=== PATIENT | female | born 1990 | race Caucasian/White ===

== ENCOUNTER 2019-02-12 08:31 | Emergency (ER) | payer OTHER ==
[~2019-02-12] VITALS: Ht 162.6 cm; Wt 70.8 kg
[2019-02-12] MEDS ORDERED: XANAX0.25 MG ORAL (08:41)
--- NOTE | 2019-02-12 08:58 | Emergency Room Report ---
History of Present Illness General Chief Complaint: General Complaint Source: Patient Present Illness HPI 28-year-old female past medical history of panic attacks presents with intermittent chest pressure, palpitations, patient feels like there is someone poking her heart, she also endorses some nausea, she stated the symptoms started 1 day ago, when she was on a return flight from [place], she states that she took a Xanax which made her feel better, she states that she also felt better when a airline pilot flight instructor calmed her down, she states she has been under a lot of stress, recently diagnosed with a BRACA mutation, and 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 later on in life, is aggravating her panic attack, she denies any fevers, cough, congestion, abdominal pain, dysuria, patient wants to make sure her heart is okay at the moment denies taking OCP, no leg swelling, no pleuritic chest pain Allergies: Coded Allergies: No Known Allergies (Unverified , 02/12/19) Patient History Past Medical History: see triage record Last Menstrual Period: 01/30/19 Reviewed Nursing Documentation: PMH: Agreed; PSxH: Agreed Nursing Documentation-PMH Past Medical History: No History, Except For History Of Psychiatric Problem: Yes - panic attack Review of Systems Constitutional: Denies: chills, fever Eye: Denies: blurred vision, double vision ENT: Denies: throat pain, nasal discharge Respiratory: Denies: cough, shortness of breath Cardiovascular: Reports: chest pain, palpitations Gastrointestinal: Denies: abdominal pain, diarrhea, nausea, vomiting Genitourinary: Denies: pain Musculoskeletal: Denies: back pain, muscle pain Skin: Denies: rash, lesions Psychiatric: Reports: anxiety Neurological: Denies: headache, focal weakness Hematologic/Lymphatic: Denies: easy bleeding, easy bruising All Other Systems: negative except mentioned in HPI Physical Exam Vital Signs Date Time Temp Pulse Resp B/P (MAP) Pulse Ox O2 Delivery O2 Flow Rate FiO2 02/12/19 08:35 98.2 83 18 131/82 (98) 99 Room Air Sp02 EP Interpretation: reviewed, normal General Appearance: well appearing, no apparent distress, alert Head: normocephalic, atraumatic Eyes: bilateral eye PERRL, bilateral eye EOMI ENT: uvula midline, moist mucus membranes Neck: supple, thyroid normal, supple/symm/no masses Respiratory: lungs clear, no respiratory distress, no retraction, no accessory muscle use Cardiovascular #1: normal peripheral pulses, regular rate, rhythm, no edema, no gallop, no murmur, other - No asymmetric or bilateral leg swelling Gastrointestinal: non tender, soft, no guarding, no rebound Musculoskeletal: normal inspection Neurologic: alert, oriented x3 Psychiatric: anxious Skin: no rash, warm/dry Medical Decision Making Diagnostic Impression: Primary Impression: Palpitations Additional Impression: Anxiety ER Course Patient with atypical chest pain, palpitations, low suspicion for acute intrathoracic processes, patient with negative EKG, negative chest x-ray, negative troponin, patient is PE RC negative. No evidence of ACS, pulmonary embolism, pneumothorax, pneumonia. Historically not abrupt in onset, tearing or ripping, pulses symmetric, no evidence of aortic dissection. Will disposition patient home with return precautions and reassurance, recommend patient follow-up with PCP EKG Diagnostic Results EKG Time: 08:58 EP Interpretation: NSR, rate 82, QTc 406, no acute ST elevations, normal axis Rate: normal Rhythm: NSR ST Segments: no acute changes Rhythm Strip Diag. Results Rhythm Strip Time: 09:15 EP Interpretation: yes Rate: 88 Rhythm: NSR, no PVC's, no ectopy Chest X-Ray Diagnostic Results Chest X-Ray Diagnostic Results : Chest X-Ray Ordered: Yes # of Views/Limited/Complete: 1 View Indication: Chest Pain EP Interpretation: Yes Interpretation: no consolidation, no effusion, no pneumothorax, no acute cardiopulmonary disease Impression: No acute disease Electronically Signed by: Lavell Castellanos MD Last Vital Signs Date Time Temp Pulse Resp B/P (MAP) Pulse Ox O2 Delivery O2 Flow Rate FiO2 02/12/19 08:35 98.2 83 18 131/82 (98) 99 Room Air Disposition: HOME, SELF-CARE Condition: Stable Referrals: [facility] Patient Instructions: Palpitations, Panic Attacks, [id number] Additional Instructions: The patient was provided with discharge instructions, notified to follow-up with a primary care doctor and or specialist in the next 24-48 hours, and to return to the ED if they have worsening of their symptoms. Please note that this report is being documented using [employer]uka! technology. This can lead to erroneous entry secondary to incorrect interpretation by the dictating instrument. Lavell Castellanos M.D. Feb 12, 2019 08:58
--- NOTE | 2019-02-12 09:00 | NUR ---
ED Nurse Note: PATIENT PRESENTS TO ER DUE TO FEELING WEAK AND PANIC ATTACK X 1 WHILE ON FLIGHT AND YESTERDAY AT HOME. PATIENT RETURNED FROM HER TRIP YESTERDAY. PATIENT HAS HX OF PANIC ATTACK AND TAKING XANAX NEEDED. PATIENT'S SYMPTOMS IMPROVED AFTER TAKING XANAX YESTERDAY. REPORTS NO CP, SOB OR DYSPNEA AT THIS TIME. PATIENT AWAKE, ALERT, ORIENTED X 4. ABLE TO FOLLOW COMMANDS. REGULAR, UNLABORED BREATHING NOTED. PLACED PATIENT ON TALENT DIRECTOR. NO ECTOPY NOTED. BED IN LOWEST POSITION.
[2019-02-12 09:08] VITALS: BP 122/78
[2019-02-12 09:20] LABS: BASOPHILS % (AUTO) 0.8 % (0.0-2.0); EOSINOPHILS % (AUTO) 1.2 % (0.0-3.0); HEMATOCRIT 40.9 % (37.0-47.0); HEMOGLOBIN 13.8 G/DL (12.0-16.0); LYMPHOCYTES % (AUTO) 27.6 % (20.0-45.0); MEAN CORPUSCULAR VOLUME 88 FL (80-99); MONOCYTES % (AUTO) 6.8 % (1.0-10.0); NEUTROPHILS % (AUTO) 63.6 % (45.0-75.0); PLATELET COUNT 196 K/UL (150-450); RED BLOOD COUNT 4.65 M/UL (4.20-5.40); RED CELL DISTRIBUTION WIDTH 11.2 % (11.6-14.8); WHITE BLOOD COUNT 5.1 K/UL (4.8-10.8)
[2019-02-12 09:23] LABS: ANION GAP 8 mmol/L (5-15); BLOOD UREA NITROGEN 7 mg/dL (7-18); CALCIUM 9.6 MG/DL (8.5-10.1); CARBON DIOXIDE 27 MMOL/L (21-32); CHLORIDE 106 MMOL/L (98-107); CREATININE 0.7 MG/DL (0.55-1.30); POTASSIUM 3.6 MMOL/L (3.5-5.1); SODIUM 141 MMOL/L (136-145)
--- NOTE | 2019-02-12 09:35 | NUR ---
ED Nurse Note: PATIENT RESTING IN BED, USING CELL PHONE. NO FACIAL GRIMACING OR GUARDING NOTED.
[2019-02-12 09:40] LABS: ALANINE AMINOTRANSFERASE 13 U/L (12-78); ALBUMIN 4.2 G/DL (3.4-5.0); ALBUMIN/GLOBULIN RATIO 1.2 (1.0-2.7); ALKALINE PHOSPHATASE 58 U/L (46-116); ASPARTATE AMINO TRANSFERASE 13 U/L (15-37); BILIRUBIN,TOTAL 0.4 MG/DL (0.2-1.0); CKMB < 0.5 NG/ML (0.0-3.6); CREATINE KINASE 56 U/L (26-308)
[2019-02-12 10:06] VITALS: BP 119/73
--- NOTE | 2019-02-12 10:06 | NUR ---
ED Nurse Note: Patient is being discharged from medical care. Patient awake, alert, oriented x 4. D/C instructionsand a copy of blood test and EKG given as requested. Patient verbalized understanding of it. All questions were answered. Patient ambulated out with steady gait with all her belongings.
--- NOTE | 2019-02-12 11:24 | Diagnostic Imaging Report ---
Indication: Chest pain Comparison: None A single view chest radiograph was obtained. Findings: Cardiomediastinal appearance is within normal limits for age. The lungs are clear. Pulmonary vascularity is appropriate. The diaphragmatic contour is smooth and costophrenic angles are sharp. No pleural effusions are identified. The bones are unremarkable. Impression: No acute findings
== END 2019-02-12 10:06 | disposition home or self-care (01) ==
LOC: EMR 08:52
DX: R00.2 Palpitations (principal); R07.89 Other chest pain; F41.9 Anxiety disorder, unspecified
CPT/HCPCS: 36415; 71045; 80053; 81025; 82550; 82553; 84484; 85025; 93005; 99284

== ENCOUNTER 2019-06-03 11:35 | Emergency (ER) | payer OTHER ==
[~2019-06-03] VITALS: Ht 162.6 cm; Wt 59.9 kg
[~2019-06-03 11:35] MED LIST: XANAX0.25 MG ORAL
[2019-06-03] MEDS ORDERED: NKM (11:44)
--- NOTE | 2019-06-03 11:56 | NUR ---
ED Nurse Note: Patient walked in ED from home c/o heart racing since last night. Pt aox4, no distress noted at this time. Placed on hospital gown, cafe worker shows NSR with HR of 88, cont. pulse ox, saturating 100% on room air. Denies pain/nausea/vomiting/diarrhea. ERMD at bedside.
[2019-06-03 11:58] VITALS: BP 122/81
--- NOTE | 2019-06-03 11:59 | NUR ---
ED Nurse Note: Patient states she took Xanax 0.25mg at midnight. Denies CP/SOB at this time. Will continue to monitor.
--- NOTE | 2019-06-03 12:29 | NUR ---
ED Nurse Note: IV on right FA started, intact and patent. Blood collected and sent down to lab. IV fluids started as ordered. Will continue to monitor.
[2019-06-03 13:19] LABS: BASOPHILS % (AUTO) 1.2 % (0.0-2.0); EOSINOPHILS % (AUTO) 0.5 % (0.0-3.0); HEMATOCRIT 41.8 % (37.0-47.0); HEMOGLOBIN 14.3 G/DL (12.0-16.0); LYMPHOCYTES % (AUTO) 26.7 % (20.0-45.0); MEAN CORPUSCULAR VOLUME 85 FL (80-99); NEUTROPHILS % (AUTO) 64.5 % (45.0-75.0); PLATELET COUNT 131 K/UL (150-450); RED BLOOD COUNT 4.91 M/UL (4.20-5.40); RED CELL DISTRIBUTION WIDTH 11.3 % (11.6-14.8); WHITE BLOOD COUNT 4.4 K/UL (4.8-10.8)
[2019-06-03 13:27] LABS: ALBUMIN 4.1 G/DL (3.4-5.0); BLOOD UREA NITROGEN 6 mg/dL (7-18); CALCIUM 9.3 MG/DL (8.5-10.1); CHLORIDE 104 MMOL/L (98-107); CREATININE 0.6 MG/DL (0.55-1.30); POTASSIUM 4.4 MMOL/L (3.5-5.1); SODIUM 141 MMOL/L (136-145)
--- NOTE | 2019-06-03 13:44 | Emergency Room Report ---
History of Present Illness General Chief Complaint: Palpitations Source: Patient Present Illness HPI Patient presents with complaints of palpitation sensation off and on over the past 2 days reports that last night she had an episode where she felt her muscle spasming She reports that she is not under any increased stress she has been told she had anxiety in the past Also reports taking Xanax last night which did help her symptoms denies any focal weakness denies any active chest pain denies any shortness of breath or pleurisy Denies any vomiting or diarrhea Allergies: Coded Allergies: No Known Allergies (Unverified , 02/12/19) Patient History Past Medical History: see triage record Last Menstrual Period: a week ago Now: No : 0 Para: 0 Reviewed Nursing Documentation: PMH: Agreed; PSxH: Agreed Nursing Documentation-PMH Past Medical History: No History, Except For Hx Cardiac Problems: No - panic attack Review of Systems All Other Systems: negative except mentioned in HPI Physical Exam Vital Signs Date Time Temp Pulse Resp B/P (MAP) Pulse Ox O2 Delivery O2 Flow Rate FiO2 06/03/19 11:39 98.4 107 17 125/81 (96) 97 Room Air Sp02 EP Interpretation: reviewed, normal General Appearance: well appearing, no apparent distress Head: normocephalic, atraumatic Eyes: bilateral eye PERRL, bilateral eye EOMI ENT: hearing grossly normal, normal pharynx, TMs + canals normal, uvula midline Neck: full range of motion, supple, no meningismus, no bony tend Respiratory: lungs clear, normal breath sounds, no rhonchi, no respiratory distress, no retraction, no accessory muscle use Cardiovascular #1: normal peripheral pulses, regular rate, rhythm, no edema, no gallop, no JVD, no murmur Gastrointestinal: normal bowel sounds, non tender, soft, no mass, no organomegaly, non-distended, no guarding, no hernia, no pulsatile mass, no rebound Genitourinary: no CVA tenderness Musculoskeletal: normal inspection Neurologic: oriented x3, responsive, manager support III-XII nml as tested, motor strength/ tone normal, sensory intact Psychiatric: mood/affect normal Skin: no rash Lymphatic: normal inspection, no adenopathy Medical Decision Making Diagnostic Impression: Primary Impression: Palpitations ER Course Patient is a fairly complex patient with multiple differential to consideration including but not limited to cardiac cardiopulmonary and vascular emergencies Other pathology such as electrolyte abnormality such as hypokalemia Intermittent spasmodic syndrome considered Patient's blood work is at baseline levels We discussed possible magnesium at home and she reports that she has tried that in the past and it makes her sleepy patient also has blood work from outside facility Showing a normal magnesium level At this time patient has appropriate evaluation and is stable for close outpatient follow-up Labs Test 06/03/19 12:10 White Blood Count 4.4 K/UL (4.8-10.8) Red Blood Count 4.91 M/UL (4.20-5.40) Hemoglobin 14.3 G/DL (12.0-16.0) Hematocrit 41.8 % (37.0-47.0) Mean Corpuscular Volume 85 FL (80-99) Mean Corpuscular Hemoglobin 29.2 PG (27.0-31.0) Mean Corpuscular Hemoglobin Concent 34.3 G/DL (32.0-36.0) Red Cell Distribution Width 11.3 % (11.6-14.8) Platelet Count 131 K/UL (150-450) Mean Platelet Volume 9.7 FL (6.5-10.1) Neutrophils (%) (Auto) 64.5 % (45.0-75.0) Lymphocytes (%) (Auto) 26.7 % (20.0-45.0) Monocytes (%) (Auto) 7.0 % (1.0-10.0) Eosinophils (%) (Auto) 0.5 % (0.0-3.0) Basophils (%) (Auto) 1.2 % (0.0-2.0) Urine HCG, Qualitative Negative (NEGATIVE) Sodium Level 141 MMOL/L (136-145) Potassium Level 4.4 MMOL/L (3.5-5.1) Chloride Level 104 MMOL/L (98-107) Carbon Dioxide Level 25 MMOL/L (21-32) Blood Urea Nitrogen 6 mg/dL (7-18) Creatinine 0.6 MG/DL (0.55-1.30) Estimat Glomerular Filtration Rate > 60 mL/min (>60) Glucose Level 88 MG/DL (74-106) Calcium Level 9.3 MG/DL (8.5-10.1) Total Bilirubin 0.7 MG/DL (0.2-1.0) Aspartate Amino Transf (AST/SGOT) 19 U/L (15-37) Alanine Aminotransferase (ALT/SGPT) 16 U/L (12-78) Alkaline Phosphatase 55 U/L (46-116) Total Protein 7.5 G/DL (6.4-8.2) Albumin 4.1 G/DL (3.4-5.0) Globulin 3.4 g/dL Lipase 92 U/L (73-393) EKG Diagnostic Results Rate: normal Rhythm: NSR ST Segments: no acute changes Rhythm Strip Diag. Results EP Interpretation: yes Rate: 65 Rhythm: NSR, no PVC's, no ectopy Last Vital Signs Date Time Temp Pulse Resp B/P (MAP) Pulse Ox O2 Delivery O2 Flow Rate FiO2 06/03/19 11:58 98.4 88 17 122/81 100 Room Air Status: improved Disposition: HOME, SELF-CARE Condition: Improved Referrals: NON PHYSICIAN (PCP) Patient Instructions: Muscle Pain, Adult, Palpitations, [id number] Additional Instructions: Patient is provided with the discharge instructions notified to follow up with primary doctor in the next 2-3 days otherwise return to the er with any worsening symptoms. Please note that this report is being documented using [employer]AG[employer] technology. This can lead to erroneous entry secondary to incorrect interpretation by the dictating instrument. Ginna Elizalde DO Jun 03, 2019 13:44
[2019-06-03 13:45] LABS: ALANINE AMINOTRANSFERASE 16 U/L (12-78); ALKALINE PHOSPHATASE 55 U/L (46-116); ASPARTATE AMINO TRANSFERASE 19 U/L (15-37); BILIRUBIN,TOTAL 0.7 MG/DL (0.2-1.0); CARBON DIOXIDE 25 MMOL/L (21-32)
--- NOTE | 2019-06-03 14:15 | NUR ---
ER DISCHARGE NOTE: Patient is cleared to be discharged per ERMD, pt is aox4, on room air, with stable vital signs. pt was given dc and prescription instructions, pt was able to verbalize understanding, pt id band and iv site removed without complications. pt is able to ambulate with steady gait. pt took all belongings.
[2019-06-03 14:19] VITALS: BP 122/71
--- NOTE | 2019-06-05 12:50 | Cardiology Report ---
APPROVED REPORT EKG Measurement Heart [id number] GA [id number] [id number] Normal sinus rhythm Normal ECG
== END 2019-06-03 14:15 | disposition home or self-care (01) ==
LOC: EMR 12:25
DX: R00.2 Palpitations (principal); F41.9 Anxiety disorder, unspecified
CPT/HCPCS: 36415; 80053; 81025; 83690; 85025; 93005; Z7502; 99283